=== PATIENT | female | born 1935 | race Caucasian/White ===

== ENCOUNTER 2024-04-13 10:43 | Observation (INO) ==
[2024-04-13 11:50] LABS: BASOPHILS # (AUTO) 0.1 10^3/uL (0.0-0.1); BASOPHILS % (AUTO) 1.1 %; EOSINOPHILS # (AUTO) 0.1 10^3/uL (0.0-0.7); EOSINOPHILS % (AUTO) 2.1 %; HCT - HEMATOCRIT 28.5 % (37.0-47.0); LYMPHOCYTES # (AUTO) 1.1 10^3/uL (1.5-3.5); LYMPHOCYTES % (AUTO) 24.2 %; MEAN CORPUSCULAR HEMOGLOBIN 23.5 pg (27.0-31.0); MEAN CORPUSCULAR HGB CONC 28.1 g/dL (32.0-36.0); MEAN CORPUSCULAR VOLUME 83.8 fL (81.0-99.0); MEAN PLATELET VOLUME 9.8 fL (7.9-10.8); MONOCYTES # (AUTO) 0.5 10^3/uL (0.0-1.0); MONOCYTES % (AUTO) 10.6 %; NEUTROPHILS # (AUTO) 2.9 10^3/uL (1.5-6.6); NEUTROPHILS % (AUTO) 61.8 %; PLT - PLATELET COUNT 388 10^3/uL (130-450); RED CELL DISTRIBUTION WIDTH 22.2 % (12.0-15.0); WHITE BLOOD COUNT 4.7 x10^3/uL (4.8-10.8)
[2024-04-13 11:54] LABS: ALBUMIN 3.5 g/dL (3.2-5.5); ALBUMIN/GLOBULIN RATIO 1.5 (1.0-2.2); BILIRUBIN,TOTAL 0.8 mg/dL (0.2-1.0); CALCIUM 8.6 mg/dL (8.5-10.3); CREATININE 0.7 mg/dL (0.6-1.3); POTASSIUM 3.2 mmol/L (3.5-4.5); TOTAL PROTEIN 5.8 g/dL (6.4-8.9)
[2024-04-13 11:55] LABS: RBC MORPHOLOGY (MULTIPLE) 4+ ANISOCYTOSIS (NORMAL); SLIDE REVIEW? Indicated
[2024-04-13 11:59] LABS: INR 4.4 (0.8-1.2); PT - PROTHROMBIN TIME 43.9 secs (9.9-12.6)
[2024-04-13] MEDS: POTASSIUM CHLOR 10 MEQ/100 ML 10 MEQ/100 ML BAG IV STA (13:10)
--- NOTE | 2024-04-13 15:15 | ED Physician Documentation ---
History of Present Illness Stated complaint Stated Complaint: GIB Chief complaint Chief Complaint: Abd Pain History obtained from History obtained from: Patient History of Present Illness Timing: Prior to arrival Additonal information Additional information: Patient is an 88-year-old female presenting to the emergency department with 2 episodes of bright red blood in her stool. Patient has past medical history of atrial fibrillation she is on warfarin and metoprolol for this. Last dose was yesterday afternoon. She denies any dizziness lightheadedness shortness of breath with her symptoms. She notes some mild lower abdominal cramping but states this resolved after she had a bowel movement and had bright red blood in her stool. She denies any hematemesis. She had similar episode of this back in December and was admitted for it but had no colonoscopy as she declined at that time. Patient also has chronic right breast wound. She notes she has been seen for wound care for it but knows it is a form of breast cancer and has declined any further workup on this. Meds/Allgy Home Medications Ambulatory Orders Medication Instructions Recorded Confirmed acetaminophen 325 mg capsule 325 mg PO Q4H PRN fever or pain 04/13/24 04/13/24 ferrous sulfate 325 mg (65 mg 325 mg PO DAILY 04/13/24 04/13/24 iron) tablet (Feosol) metoprolol succinate 50 mg 50 mg PO DAILY 04/13/24 04/13/24 tablet,extended release 24 hr omeprazole 20 mg capsule,delayed 20 mg PO DAILY 04/13/24 04/13/24 release warfarin 2 mg tablet (Jantoven) 2 mg PO DAILY 04/13/24 04/13/24 Allergies Allergies Allergy/AdvReac Type Severity Reaction Status Date / Time Penicillins Allergy Intermediate Hallucinati Verified 04/13/24 11:04 ons codeine Allergy Mild Unknown Verified 04/13/24 11:04 [facility] Medical History Medical History (Updated 04/13/24 @ 15:29 by Fátima Car MD) Iron deficiency anemia with TIA received 2 units for hgb 6.1. does not wish to pursue work up Chronic atrial fibrillation Hyperlipidemia Hypertension History of stroke but had TIA ss 01/22-01/23 w admit to [facility] CAD (coronary artery disease) s/p cabg 2008, and AVR w bioprosthetic valve Mass of breast thickened, hard skin right breast, refuses tx Social History Social History (Updated 04/13/24 @ 11:03 by Evelyne Gibson RN) Smoking Status: Never smoker Living arrangement: At home Living Condition: With family Relationship: Physical Activity: Walking Do you feel safe in your home environment?: Yes Suffered physical, verbal, emotional, or financial abuse?: No History of Abuse: No ETOH Use: None POLST Patient has POLST: Yes Exam Constitutional normal general appearance HENMT normocephalic Eyes PERRL and EOMs intact bilaterally Neck/C-Spine visual inspection normal, trachea midline and cervical spine nontender Lymph no lymphadenopathy noted Chest inspection of chest normal Respiratory breath sounds equal bilaterally, normal respiratory effort and clear to auscultation bilaterally Cardiovascular normal heart rate noted, regular rhythm noted, no gallop and no rub Gastrointestinal abdomen normal to inspection Abdomen is soft with throughout tenderness on palpation no rebound or guarding. Active bowel sounds on auscultation. No palpable or pulsatile masses Genitourinary no CVA tenderness exam shows bright red blood, no signs of internal or external palpable hemorrhoids Results Vitals Vitals: Vital Signs - 24 hr 04/13/24 10:56 04/13/24 13:03 04/13/24 15:00 Temperature 36.1 C L Pulse Rate 77 93 H 87 Respiratory Rate 16 22 18 Blood Pressure 192/91 H 187/96 H 187/96 H O2 Saturation 99 97 98 O2 Source Room air Room air Room air Pain Intensity 5 0 2 Oxygen O2 Source Room air Labs Labs: Microbiology 04/13/24 11:34 Occult Blood - Final Stool Laboratory Tests 04/13/24 04/13/24 04/13/24 11:10 11:27 12:52 WBC 4.7 L RBC 3.40 L Hgb 8.0 L Hct 28.5 L MCV 83.8 MCH 23.5 L MCHC 28.1 L RDW 22.2 H Plt Count 388 MPV 9.8 Neut # (Auto) 2.9 Lymph # (Auto) 1.1 L [place] # (Auto) 0.5 Eos # (Auto) 0.1 Baso # (Auto) 0.1 Absolute Nucleated RBC 0.00 Nucleated RBC % 0.0 Manual Slide Review Indicated RBC Morph Micro Appear 4+ ANISOCYTOSIS PT 43.9 H INR 4.4 H Sodium 139 Potassium 3.2 L Chloride 106 Carbon Dioxide 26 Anion Gap 7.0 BUN 12 Creatinine 0.7 Estimated GFR (MDRD) 79 L Glucose 113 H Calcium 8.6 Total Bilirubin 0.8 AST 13 ALT 6 L Alkaline Phosphatase 68 Total Protein 5.8 L Albumin 3.5 Globulin 2.3 Albumin/Globulin Ratio 1.5 Lipase 16 Blood Type A POSITIVE Blood Type Recheck A POSITIVE Antibody Screen NEGATIVE PD Medical Decision Making ED course Complexity details: reviewed old records ED course: Patient is a 82-year-old female brought in by granddaughter for 2 episodes of bright red blood in her stool. Similar episode occurred back in December where she was seen at [facility] but no colonoscopy was performed as she declined at that time. Patient continues to report Blood in her stool but denies any associated symptoms including shortness of breath dizziness li ghtheadedness. Vitals on arrival are stable patient is normotensive slightly tachycardic but EKG obtained here shows persistent atrial fibrillation with occasional PVCs. Patient is normotensive on arrival. Rectal exam does show bright red blood with positive guaiac test. CBC shows anemic to 8.0 unsure of patient's baseline as her labs have never been performed here. No previous records outpatient. Her INR is 4.4. Her last dose of warfarin was yesterday. Patient has been having trouble controlling her INR levels. Discussed with On-call surgeon Dr. Chew who reviewed case and recommends patient be admitted to hospitalist but will see patient in patient. Discussed case with hospitalist Dr. Shine who will admit patient to observation status and is agreeable with this plan. Discharge Plan Discharge Patient Disposition: ED Place in Observation Condition: Stable Clinical Impression: Acute GI bleeding, Anemia Prescriptions: No Action ferrous sulfate [Feosol] 325 mg (65 mg iron) tablet 325 mg PO DAILY metoprolol succinate 50 mg tablet extended release 24 hr 50 mg PO DAILY warfarin [Jantoven] 2 mg tablet 2 mg PO DAILY omeprazole 20 mg capsule,delayed release(DR/EC) 20 mg PO DAILY acetaminophen 325 mg capsule 325 mg PO Q4H PRN (Reason: fever or pain) Print Language: Algerian Stand Alone Forms: PCP List
[2024-04-13] MEDS: PHYTONADIONE 10 MG/ML AMP PO ONE (15:52)
[2024-04-13] MEDS: CHERRY SYRUP 10 ML UDC PO ONE ×2 (15:52→16:33)
[2024-04-13 16:07] LABS: HCT - HEMATOCRIT 29.3 % (37.0-47.0); HGB - HEMOGLOBIN 8.2 g/dL (12.0-16.0); MEAN CORPUSCULAR HEMOGLOBIN 23.6 pg (27.0-31.0); MEAN CORPUSCULAR VOLUME 84.2 fL (81.0-99.0); MEAN PLATELET VOLUME 9.8 fL (7.9-10.8); RED BLOOD COUNT 3.48 10^6/uL (4.20-5.40); RED CELL DISTRIBUTION WIDTH 21.9 % (12.0-15.0); WHITE BLOOD COUNT 4.9 x10^3/uL (4.8-10.8)
[2024-04-13] MEDS ORDERED: oxyCODONE 5 MG TABLET PO PRN (16:18)
[2024-04-13] MEDS ORDERED: ONDANSETRON ODT 4 MG TABLET TL PRN (16:18)
[2024-04-13] MEDS ORDERED: PHYTONADIONE 10 MG/ML AMP PO ONE (16:18)
[2024-04-13] MEDS ORDERED: SODIUM CHLORIDE FLUSH 0.9% 10 ML SYRINGE IVP PRN (16:18)
[2024-04-13] MEDS ORDERED: ONDANSETRON 4 MG/2 ML VIAL IVP PRN (16:18)
[2024-04-13] MEDS: SODIUM CHLORIDE FLUSH 0.9% 10 ML SYRINGE IVP SCH (18:15)
--- NOTE | 2024-04-13 18:17 | HISTORY & PHYSICAL EXAMINATION ---
Chief Complaint <Jordan Denis - Last Filed: 04/13/24 18:38> Chief Complaint Chief Complaint: Bright red blood in stool History of Present Illness <Jordan Denis - Last Filed: 04/13/24 18:38> Admitted From Admitted From:: ER History Obtained From Records Reviewed: Expanse History obtained from: Expanse/Patient Exam Limitations: none History of Present Illness HPI Comment/Other: Patient is an 88 year old female being admitted from the ER for anemia and acute GI bleeding. Patient states she has chronic anemia and required a blood transfusion of 2 units packed red blood cells back in December. She also describes what sounds like intermittent episodes of melena seen in her stool. She is currently complaining of painless bright red blood in her stool which she first noticed yesterday. Despite the acknowledged possible melena, patient states she has never experienced bright red blood in stool before. With yesterday's episode, she described a sensation that felt like her rectum was plugged and also mentioned a tearing type sensation with a minor stinging discomfort. She denied any significant pain with the episode. The blood was described as mixed with the stool. Bright red blood was also seen on the toilet paper. She does note experiencing intermittent diarrhea and constipation. She denies coughing or vomiting any bright blood or coffee ground emesis. She states she has hx of GERD that is medically managed. She denies any acute changes in bowel habits, consistency, or frequency. She denies any abdominal pain, or distention. She mentions poor appetite and minor weight loss, but granddaughter has been helping ensure adequate nutrition. No obvious significant weight changes noticed. Denies any relevant GI history such as IBD or IBS. She does mention a family history of diverticulosis but is unsure if she has this herself. Patient also has a history of breast cancer and presents with an open wound on her right breast. Patient has been living with this for 12 years and has denied any treatment. Wound has remained isolated to her breast, requiring frequent dressing changes. Patient describes it as leaking an "[place] green" color and only complains of pain and discomfort when changing the dressing. This wound is also being considered as a possible cause for patient's anemia. Meds/Allgy <Jordan Denis - Last Filed: 04/13/24 18:38> Home Medications Ambulatory Orders Medication Instructions Recorded Confirmed acetaminophen 325 mg capsule 325 mg PO Q4H PRN fever or pain 04/13/24 04/13/24 ferrous sulfate 325 mg (65 mg 325 mg PO DAILY 04/13/24 04/13/24 iron) tablet (Feosol) metoprolol succinate 50 mg 50 mg PO DAILY 04/13/24 04/13/24 tablet,extended release 24 hr omeprazole 20 mg capsule,delayed 20 mg PO DAILY 04/13/24 04/13/24 release warfarin 2 mg tablet (Jantoven) 2 mg PO DAILY 04/13/24 04/13/24 Allergies Allergies Allergy/AdvReac Type Severity Reaction Status Date / Time Penicillins Allergy Intermediate Hallucinati Verified 04/13/24 11:04 ons codeine Allergy Mild Unknown Verified 04/13/24 11:04 [facility] <Jordan Denis - Last Filed: 04/13/24 18:38> Medical History Medical History History of fracture Iron deficiency anemia with TIA received 2 units for hgb 6.1. does not wish to pursue work up Chronic atrial fibrillation Hyperlipidemia Hypertension History of stroke had TIA ss 01/22-01/23 w admit to [facility]. 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, deep brain lacunar infarcs L>R, angio w dense sclerosis but no obstruction CAD (coronary artery disease) s/p cabg 2008, and AVR w bioprosthetic valve Mass of breast thickened, hard skin right breast, refuses tx Family History Family History (Updated 04/13/24 @ 18:25 by Fátima Car MD) Mother Diverticulosis CAD (coronary artery disease) CVA (cerebral vascular accident) Congestive heart failure Father CAD (coronary artery disease) Congestive heart failure Son Well adult exam Daughter Well adult exam Social History Social History (Updated 04/13/24 @ 16:34 by Jordan Denis) Smoking Status: Former smoker If you are a former smoker, when did you quit? (Date/Year): 1989 Number of Years Smoked: 20 How many cigarettes a day do you smoke? (20 cigarettes=1 Pk): 20 Living arrangement: At home Living Condition: With family Support Person: Yes Relationship: Living Situation Details: Lives with grandchild and grandchild's partner. Physical Activity: Walking Level: Independent Do you feel safe in your home environment?: Yes Suffered physical, verbal, emotional, or financial abuse?: No History of Abuse: No ETOH Use: None ETOH Use Details: States she used to drink wine, no current use. Substance Use: denies use POLST Patient has POLST: Yes <Fátima Car MD - Last Filed: 04/13/24 18:38> POLST POLST Status: DNR Review of Systems <Jordan Vogel - Last Filed: 04/13/24 18:38> Status of ROS: 10 or more systems reviewed and unremarkable except as noted in history and below Constitutional Reports: Weight loss; Denies: Fatigue, Fever, Chills, Diaphoresis, Night sweats, Changes in appetite or eating habits, Poor appetite, Weight gain or Change in sleep pattern Eyes Denies: Pain, Irritation, Change in vision, Light sensitivity or Eye discomfort Ears, nose, mouth, and throat Reports: Difficulty swallowing (Mentioned some difficulty swallowing liquids, no issues with food.); Denies: Ear pain, Change in hearing, Swelling of lips/tongue, Mouth lesions or Neck pain Cardiovascular Reports: Irregular heart rate; Denies: chest pain, palpitations, edema, swelling of feet/ankles, Syncope, lightheadedness or shortness of breath with exertion Respiratory Reports: Cough (Chronic cough.); Denies: Shortness of breath, Sputum production, Wheezing, Apnea or Stridor Gastrointestinal Reports: Nausea (chronic nausea), Poor appetite, Heartburn, Diarrhea, Constipation, Difficulty swallowing (Mentioned some difficulty swallowing liquids, no issues with food.), Feeling full early, Rectal bleeding and Blood in stool; Denies: Abdominal pain, Abdominal distention, [place] blood emesis, Coffee grounds in vomit, Bloating or Change in bowel habits Genitourinary Denies: Painful urination, Urinary frequency or Urinary urgency Musculoskeletal Denies: Back pain, Neck pain, Extremity pain or Extremity swelling Integumentary/Breast Reports: Skin tenderness, Sores, Non-healing lesion, Breast mass (Part of history, not being treated.) and Breast skin changes; Denies: Rash, Itching or Dryness Neurological Denies: Headache, General weakness, Focal weakness, Weakness in extremities or Numbness in extremities Endocrine Denies: Excessive urination, Excessive thirst or Fatigue Hematologic/Lymphatic Reports: Anemia Allergic/Immunologic Denies: Wheezing <Jordan Hem - Last Filed: 04/13/24 18:38> Prior Level of Functionality: Current condtions have no impact on prior level of function. <Fátima Car MD - Last Filed: 04/13/24 18:38> Prior Level of Functionality: by herself during the day and able to do cold food and at night granddaughter cooks hot meal she eats. needs help in shower bc of breast mass pain. rarely walker. doesn't drive. . Exam <Jordan Denis - Last Filed: 04/13/24 18:38> Exam Patient is alert and oriented, pleasant to talk to, in no apparent distress. She is compliant and able to answer all questions as necessary. Constitutional normal general appearance, no apparent distress, average body habitus, no limitations and alert HENMT normocephalic, external ears normal, external nose normal and oropharynx normal Eyes PERRL, EOMs intact bilaterally and conjunctivae normal Neck/C-Spine visual inspection normal, trachea midline and cervical full ROM noted Respiratory breath sounds equal bilaterally, normal respiratory effort, clear to auscultation bilaterally, no wheezes, no rales and no retractions Cardiovascular heart rate abnormal, rhythm abnormal, no gallop, no rub, no murmur and no JVD Gastrointestinal abdomen normal to inspection, abdomen soft to palpation, nontender to palpation, nondistended, normoactive bowel sounds, no masses, no pulsatile mass, no ascites and rectal exam abnormal (hemorrhoids) Back/Pelvis spine normal to inspection, thoracic spine ROM normal and lumbar spine ROM normal Extremities normal to inspection, normal to palpation, no tenderness and full ROM Neurology marine painter II-XII intact, no movement abnormality noted, no focal motor deficit noted, no sensory deficits noted, speech normal and coordination normal Psychiatry mental status grossly normal, oriented x3, thought process normal, cooperative, affect normal, psychomotor activity normal and memory normal Skin skin color normal, no rash and no lesions <Fátima Car MD - Last Filed: 04/13/24 18:38> Constitutional frail, 5'2", 58.7 kg (129 lbs). She was 144 lbs at cardiology office in the spring. Chest right breast with foul smelling discharge, loss of skin, erosions, oozing, green reina tis 2 hand widths large. no surround cellulitis. Conclusion/Plan <Jordan Denis - Last Filed: 04/13/24 18:38> Problem List (1) Acute GI bleeding: Plan: Rectal exam was performed and discovered patient had external hemorrhoids that appear inflamed and recently aggrivated which is likely the source of rectal bleeding. Will continue to monitor to ensure there is no recurrent issues. Patient was advised to try being more gentle with wiping to avoid further aggrivation. (2) Anemia: Plan: Patient is currently on warfarin for afib/stoke/cardiac history. Warfarin is being held and patient was administered PO vit K. Will continue to monitor INR and anemia and treat if necessary pending serial labs. Possible sources of anemia include recent hemorrhoid bleeding, breast cancer wound, or other anemia of chronic disease. Blood transfusion will be considered as necessary based upon patient's history of previous transfusion. 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 It has been ongoing for 12 years and currently presents as a leaking wound covering most of the breast. It is bandaged and difficult to remove, causing discomfort, so no immediate need to evaluate. Tomorrow, the bandage will be carefully removed and assessed. Patient is adamant about no surgical treatment, so a better wound care plan will be discussed with possible referral to the crime data specialist. Qualifiers: Breast location: unspecified site of breast Estrogen receptor status: u nspecified Laterality: right Patient sex: female Qualified Code(s): C50.911 - Malignant neoplasm of unspecified site of right female breast (4) Advanced care planning/counseling discussion: Plan: Based upon patient's history and request for no treatment, there was confusion about her being in the ER. We had a conversation with the patient to better determine her treatment goals in order to most appropriately plan and manage her care. She is adamant about no surgical procedures, only requesting minimally invasive procedures/therapy and comfort measures. She expressed emotion and hesitancy for receiving treatment due to feeling like a burden on her family who takes care of her. We, and her family member, reassured her that she is not a burden, that we will honor her wishes for treatment, and she appeared receptive and comforted by the discussion. Lab Results 04/13/24 16:03 04/13/24 11:27 <Fátima Car MD - Last Filed: 04/13/24 18:38> Problem List (1) Acute GI bleeding: Plan: Rectal exam was performed and discovered patient had external hemorrhoids that appear inflamed and recently aggravated which is likely the source of rectal bleeding. Will continue to monitor to ensure there is no recurrent issues. Patient was advised to try being more gentle with wiping to avoid further aggrivation. We discussed a bidet for home use. Plan: Observation status serial hemograms PPI orally (2) Anemia: Plan: iron deficiency. That is most likely due to lack of nutrition due to lack of appetite, loss of blood thru wound, and may or may not from GI losses as she describes boughts of diarrhea w melena that comes and goes for 2 years now. Patient is currently on warfarin for afib/stoke/cardiac history. Warfarin is being held and patient was administered PO vit K. Will continue to monitor INR and anemia and treat if necessary pending serial labs. Possible sources of anemia include recent hemorrhoid bleeding, breast cancer wound, or other anemia of chronic disease. Blood transfusion will be considered as necessary based upon patient's history of previous transfusion. 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 It has been ongoing for 12 years and currently presents as a leaking wound covering most of the breast. It is bandaged and difficult to remove, causing discomfort, so no immediate need to evaluate. Tomorrow, the bandage will be carefully removed and assessed. Patient is adamant about no surgical treatment, so a better wound care plan will be discussed with possible referral to the crime data specialist. Navid is asking for help and would like to be instructed on how to change bandages. She is also wondering if home health wound could help. As recently as December, Ms Lin had not wanted HH but is now wanting to see if it could change how much her breast hurts I will also ask for outpatient Palliative care eval. (4) Advanced care planning/counseling discussion: Plan: Based upon patient's history and request for no treatment, there was confusion about her being in the ER. We had a conversation with the patient to better determine her treatment goals in order to most appropriately plan and manage her care. She is adamant about no surgical procedures, only requesting minimally invasive procedures/therapy and comfort measures. She expressed emotion and hesitancy for receiving treatment due to feeling like a burden on her family who takes care of her. We, and her family member, reassured her that she is not a burden, that we will honor her wishes for treatment, and she appeared receptive and comforted by the discussion. she is a Do Not Resuscitate. Core Measures <Fátima L MD Josep - Last Filed: 04/13/24 18:38> Anticipated LOS I expect patient to be DC'd or transferred within 96 hours.: Yes DVT/VTE - Prophylaxis VTE/DVT Prophylaxis med ordered at admit?: Yes
[2024-04-13 21:39] LABS: BILIRUBIN,URINE NEGATIVE (NEGATIVE); CLARITY,URINE HAZY (CLEAR); GLUCOSE, URINE (UA) NEGATIVE (NEGATIVE); KETONES,URINE (UA) 15 mg/dL (NEGATIVE); LEUKOCYTE ESTERASE, URINE SMALL (NEGATIVE); NITRITE,URINE NEGATIVE (NEGATIVE); OCCULT BLOOD,URINE NEGATIVE (NEGATIVE); PH,URINE 7.5 PH (5.0-7.5); PROTEIN,URINE NEGATIVE (NEGATIVE); UROBILINOGEN,URINE 0.2 (NORMAL) E.U./dL (NORMAL)
[2024-04-13 21:49] LABS: BACTERIA,URINE Moderate /HPF (None Seen); MUCUS,URINE Few Strands; RBC,URINE 0-5 /HPF (0-5); SQUAMOUS EPITHELIAL CELL,UR MOD Squamous (<= Few)
[2024-04-13 23:43] LABS: HCT - HEMATOCRIT 26.9 % (37.0-47.0); HGB - HEMOGLOBIN 7.5 g/dL (12.0-16.0); MEAN CORPUSCULAR HEMOGLOBIN 23.1 pg (27.0-31.0); MEAN CORPUSCULAR HGB CONC 27.9 g/dL (32.0-36.0); MEAN CORPUSCULAR VOLUME 82.8 fL (81.0-99.0); MEAN PLATELET VOLUME 8.8 fL (7.9-10.8); RED BLOOD COUNT 3.25 10^6/uL (4.20-5.40); RED CELL DISTRIBUTION WIDTH 21.8 % (12.0-15.0); WHITE BLOOD COUNT 4.5 x10^3/uL (4.8-10.8)
[2024-04-14 05:57] LABS: BASOPHILS # (AUTO) 0.1 10^3/uL (0.0-0.1); BASOPHILS % (AUTO) 1.1 %; EOSINOPHILS # (AUTO) 0.2 10^3/uL (0.0-0.7); EOSINOPHILS % (AUTO) 4.8 %; HCT - HEMATOCRIT 25.9 % (37.0-47.0); HGB - HEMOGLOBIN 7.5 g/dL (12.0-16.0); LYMPHOCYTES # (AUTO) 1.4 10^3/uL (1.5-3.5); LYMPHOCYTES % (AUTO) 29.5 %; MEAN CORPUSCULAR HEMOGLOBIN 24.3 pg (27.0-31.0); MEAN CORPUSCULAR VOLUME 83.8 fL (81.0-99.0); MEAN PLATELET VOLUME 9.7 fL (7.9-10.8); MONOCYTES # (AUTO) 0.6 10^3/uL (0.0-1.0); MONOCYTES % (AUTO) 12.7 %; NEUTROPHILS # (AUTO) 2.4 10^3/uL (1.5-6.6); NEUTROPHILS % (AUTO) 51.9 %; PLT - PLATELET COUNT 319 10^3/uL (130-450); RED BLOOD COUNT 3.09 10^6/uL (4.20-5.40); RED CELL DISTRIBUTION WIDTH 21.8 % (12.0-15.0); WHITE BLOOD COUNT 4.6 x10^3/uL (4.8-10.8)
[2024-04-14 06:05] LABS: SLIDE REVIEW? Indicated
[2024-04-14 06:09] LABS: INR 1.5 (0.8-1.2); PT - PROTHROMBIN TIME 16.2 secs (9.9-12.6)
[2024-04-14 06:14] LABS: CALCIUM 8.3 mg/dL (8.5-10.3); CREATININE 0.6 mg/dL (0.6-1.3); POTASSIUM 2.9 mmol/L (3.5-4.5)
[2024-04-14 06:36] LABS: PLATELET MORPHOLOGY NORMAL APPEARANCE (NORMAL)
[2024-04-14 06:37] LABS: PLATELET ESTIMATE, MANUAL NORMAL (130-450,000) (NORMAL); WBC MORPHOLOGY (MULTIPLE) NORMAL APPEARANCE (NORMAL)
[2024-04-14] MEDS: FERROUS SULFATE 325 MG TABLET PO SCH (08:23)
[2024-04-14] MEDS: POTASSIUM CHLORIDE 20 MEQ TABLET PO SCH (08:23)
[2024-04-14] MEDS: METOPROLOL SUCCINATE 50 MG TABLET PO SCH (08:23)
--- NOTE | 2024-04-14 09:19 | PROVIDER PROGRESS NOTE ---
Documented by User: Jordan Denis 04/14/24 16:31 Subjective Prog Note Date Prog Note Date: 04/14/24 Prog Note Time: 09:00 Subjective Pt reports feeling: Improved Subjective: Upon entering room, patient appears happy, upbeat, and overall very pleasant. She will be receiving 1 unit of blood due to low HGB, but is otherwise denying any acute complaints to include abnormal weakness, chest pain, shortness of breath, other pain, nausea, or vomiting. We discussed her care plan to include after discharge which she seemed excited about, particularly regarding assistance with her wound care and showing which will include a home health nurse. Current Medications Current Medications Current Medications: Current Medications Generic Name Dose Route Start Last Admin Trade Name Freq PRN Reason Stop Dose Admin Acetaminophen 325 mg 04/13/24 16:18 Acetaminophen 325 Mg Tablet PO Q4H PRN fever or pain Ferrous Sulfate 325 mg 04/14/24 09:00 04/14/24 08:23 Ferrous Sulfate 325 Mg Tablet PO 325 mg DAILY VIRY Administration Metoprolol Succinate 50 mg 04/14/24 09:00 04/14/24 08:23 Metoprolol Succinate 50 Mg Tablet PO 50 mg DAILY VIRY Administration Ondansetron HCl 4 mg 04/13/24 16:18 Ondansetron Odt 4 Mg Tablet TL Q6HR PRN Nausea / Vomiting Ondansetron HCl 4 mg 04/13/24 16:18 Ondansetron 4 Mg/2 Ml Vial IVP Q6HR PRN Nausea / Vomiting Oxycodone HCl 5 mg 04/13/24 16:18 Oxycodone 5 Mg Tablet PO Q4HR PRN Pain 5 to 7 Potassium Chloride 40 meq 04/14/24 08:00 04/14/24 08:23 Potassium Chloride 20 Meq Tablet PO 40 meq TID VIRY Administration Sodium Chloride 10 ml 04/13/24 16:18 Sodium Chloride Flush 0.9% 10 Ml Syringe IVP PRN PRN NEEDED PER PROVIDER ORDERS Sodium Chloride 10 ml 04/13/24 17:00 04/14/24 08:23 Sodium Chloride Flush 0.9% 10 Ml Syringe IVP 10 ml 0100,0900,1700 VIRY Administration Objective Vital Signs/Intake & Output Reviewed Vital Signs: Yes Vital Signs: Vital Signs x48h Temp Pulse Resp BP Pulse Ox O2 Flow Rate 04/14/24 08:18 36.5 C 95 H 20 152/76 H 96 04/14/24 05:02 36.4 C L 97 H 20 148/76 H 96 Intake & Output: Intake & Output 04/12/24 04/13/24 04/14/24 04/15/24 05:59 05:59 05:59 05:59 Intake Total 680 / 680 50 / 50 Output Total 500 / 500 Balance 180 / 180 50 / 50 Weight (kg) 59.5 kg Objective General Appearance: positive No acute distress and Alert Eyes Bilateral: positive Normal inspection and PERRL ENT: positive No signs of dehydration Neck: positive Nml inspection, No JVD and Trachea midline Respiratory: positive No respiratory distress and Breath sounds nml; negative Wheezes, Rales or Rhonchi Cardiovascular: positive No murmur, No gallop and Irregularly irregular; negative Regular rate & rhythm Abdomen: positive Non-tender, No organomegaly, Nml bowel sounds and No distention; negative Tenderness or Guarding Back: positive Nml inspection Skin: positive Color nml and Warm Extremities: positive Non-tender, Full ROM and No pedal edema Neurologic/Psychiatric: positive Oriented x3, CN's nml (2-12), Motor nml and Sensation nml Lab Results 04/14/24 05:11 04/14/24 05:11 Other Labs: Lab Results x24hrs 04/14/24 04/14/24 04/14/24 Range/Units 05:11 05:11 05:11 WBC (4.8-10.8) x10^3/uL RBC (4.20-5.40) 10^6/uL Hgb (12.0-16.0) g/dL Hct (37.0-47.0) % MCV (81.0-99.0) fL MCH (27.0-31.0) pg MCHC (32.0-36.0) g/dL RDW (12.0-15.0) % Plt Count (130-450) 10^3/uL MPV (7.9-10.8) fL Neut # (Auto) (1.5-6.6) 10^3/uL Lymph # (Auto) (1.5-3.5) 10^3/uL [place] # (Auto) (0.0-1.0) 10^3/uL Eos # (Auto) (0.0-0.7) 10^3/uL Baso # (Auto) (0.0-0.1) 10^3/uL Absolute Nucleated RBC x10^3/uL Nucleated RBC % /100WBC Manual Slide Review WBC Morphology (NORMAL) Platelet Estimate (NORMAL) Platelet Morphology (NORMAL) RBC Morph Micro Appear 1+ HYPOCHROMASIA 2+ ANISOCYTOSIS 1+ SCHISTOCYTES (NORMAL) PT 16.2 H (9.9-12.6) secs INR 1.5 H (0.8-1.2) Sodium 141 (135-145) mmol/L Potassium 2.9 L (3.5-4.5) mmol/L Chloride 108 (101-111) mmol/L Carbon Dioxide 26 (21-32) mmol/L Anion Gap 7.0 (6-13) BUN 13 (6-20) mg/dL Creatinine 0.6 (0.6-1.3) mg/dL Estimated GFR (MDRD) 95 (>89) Glucose 136 H (74-104) mg/dL Calcium 8.3 L (8.5-10.3) mg/dL Total Bilirubin (0.2-1.0) mg/dL AST (10-42) IU/L ALT (10-60) IU/L Alkaline Phosphatase (42-121) IU/L Total Protein (6.4-8.9) g/dL Albumin (3.2-5.5) g/dL Globulin (2.1-4.2) g/dL Albumin/Globulin Ratio (1.0-2.2) Lipase (11-82) U/L Urine Color Urine Clarity Urine pH Ur Specific [place] Urine Protein Urine Glucose (UA) Urine Ketones Urine Occult Blood Urine Nitrite Urine Bilirubin Urine Urobilinogen Ur Leukocyte Esterase Urine RBC (0-5) /HPF Urine WBC (0-5) /HPF Ur Squamous Epith Cells (<= Few) Urine Bacteria (None Seen) /HPF Urine Mucus Ur Microscopic Review Urine Culture Comments Blood Type Blood Type Recheck Antibody Screen Crossmatch IS Only 04/14/24 04/13/24 04/13/24 Range/Units 05:11 23:38 21:20 WBC 4.6 L 4.5 L (4.8-10.8) x10^3/uL RBC 3.09 L 3.25 L (4.20-5.40) 10^6/uL Hgb 7.5 L 7.5 L (12.0-16.0) g/dL Hct 25.9 L 26.9 L (37.0-47.0) % MCV 83.8 82.8 (81.0-99.0) fL MCH 24.3 L 23.1 L (27.0-31.0) pg MCHC 29.0 L 27.9 L (32.0-36.0) g/dL RDW 21.8 H 21.8 H (12.0-15.0) % Plt Count 319 311 (130-450) 10^3/uL MPV 9.7 8.8 (7.9-10.8) fL Neut # (Auto) 2.4 (1.5-6.6) 10^3/uL Lymph # (Auto) 1.4 L (1.5-3.5) 10^3/uL [place] # (Auto) 0.6 (0.0-1.0) 10^3/uL Eos # (Auto) 0.2 (0.0-0.7) 10^3/uL Baso # (Auto) 0.1 (0.0-0.1) 10^3/uL Absolute Nucleated RBC 0.00 x10^3/uL Nucleated RBC % 0.0 /100WBC Manual Slide Review Indicated WBC Morphology NORMAL APPEARANCE (NORMAL) Platelet Estimate NORMAL (130-450,000) (NORMAL) Platelet Morphology NORMAL APPEARANCE (NORMAL) RBC Morph Micro Appear 2+ OVALOCYTES (NORMAL) PT (9.9-12.6) secs INR (0.8-1.2) Sodium (135-145) mmol/L Potassium (3.5-4.5) mmol/L Chloride (101-111) mmol/L Carbon Dioxide (21-32) mmol/L Anion Gap (6-13) BUN (6-20) mg/dL Creatinine (0.6-1.3) mg/dL Estimated GFR (MDRD) (>89) Glucose (74-104) mg/dL Calcium (8.5-10.3) mg/dL Total Bilirubin (0.2-1.0) mg/dL AST (10-42) IU/L ALT (10-60) IU/L Alkaline Phosphatase (42-121) IU/L Total Protein (6.4-8.9) g/dL Albumin (3.2-5.5) g/dL Globulin (2.1-4.2) g/dL Albumin/Globulin Ratio (1.0-2.2) Lipase (11-82) U/L Urine Color YELLOW Urine Clarity HAZY Urine pH 7.5 Ur Specific [place] 1.020 Urine Protein NEGATIVE Urine Glucose (UA) NEGATIVE Urine Ketones 15 H Urine Occult Blood NEGATIVE Urine Nitrite NEGATIVE Urine Bilirubin NEGATIVE Urine Urobilinogen 0.2 (NORMAL) Ur Leukocyte Esterase SMALL H Urine RBC 0-5 (0-5) /HPF Urine WBC 4-5 (0-5) /HPF Ur Squamous Epith Cells MOD Squamous H (<= Few) Urine Bacteria Moderate H (None Seen) /HPF Urine Mucus Few Strands Ur Microscopic Review INDICATED Urine Culture Comments NOT INDICATED Blood Type Blood Type Recheck Antibody Screen Crossmatch IS Only 04/13/24 04/13/24 04/13/24 Range/Units 16:03 15:05 12:52 WBC 4.9 (4.8-10.8) x10^3/uL RBC 3.48 L (4.20-5.40) 10^6/uL Hgb 8.2 L (12.0-16.0) g/dL Hct 29.3 L (37.0-47.0) % MCV 84.2 (81.0-99.0) fL MCH 23.6 L (27.0-31.0) pg MCHC 28.0 L (32.0-36.0) g/dL RDW 21.9 H (12.0-15.0) % Plt Count 354 (130-450) 10^3/uL MPV 9.8 (7.9-10.8) fL Neut # (Auto) (1.5-6.6) 10^3/uL Lymph # (Auto) (1.5-3.5) 10^3/uL [place] # (Auto) (0.0-1.0) 10^3/uL Eos # (Auto) (0.0-0.7) 10^3/uL Baso # (Auto) (0.0-0.1) 10^3/uL Absolute Nucleated RBC x10^3/uL Nucleated RBC % /100WBC Manual Slide Review WBC Morphology (NORMAL) Platelet Estimate (NORMAL) Platelet Morphology (NORMAL) RBC Morph Micro Appear (NORMAL) PT (9.9-12.6) secs INR (0.8-1.2) Sodium (135-145) mmol/L Potassium (3.5-4.5) mmol/L Chloride (101-111) mmol/L Carbon Dioxide (21-32) mmol/L Anion Gap (6-13) BUN (6-20) mg/dL Creatinine (0.6-1.3) mg/dL Estimated GFR (MDRD) (>89) Glucose (74-104) mg/dL Calcium (8.5-10.3) mg/dL Total Bilirubin (0.2-1.0) mg/dL AST (10-42) IU/L ALT (10-60) IU/L Alkaline Phosphatase (42-121) IU/L Total Protein (6.4-8.9) g/dL Albumin (3.2-5.5) g/dL Globulin (2.1-4.2) g/dL Albumin/Globulin Ratio (1.0-2.2) Lipase (11-82) U/L Urine Color Cancelled Urine Clarity Cancelled Urine pH Cancelled Ur Specific [place] Cancelled Urine Protein Cancelled Urine Glucose (UA) Cancelled Urine Ketones Cancelled Urine Occult Blood Cancelled Urine Nitrite Cancelled Urine Bilirubin Cancelled Urine Urobilinogen Cancelled Ur Leukocyte Esterase Cancelled Urine RBC (0-5) /HPF Urine WBC (0-5) /HPF Ur Squamous Epith Cells (<= Few) Urine Bacteria (None Seen) /HPF Urine Mucus Ur Microscopic Review Cancelled Urine Culture Comments Cancelled Blood Type A POSITIVE Blood Type Recheck Antibody Screen NEGATIVE Crossmatch IS Only See Detail 04/13/24 04/13/24 Range/Units 11:27 11:10 WBC 4.7 L (4.8-10.8) x10^3/uL RBC 3.40 L (4.20-5.40) 10^6/uL Hgb 8.0 L (12.0-16.0) g/dL Hct 28.5 L (37.0-47.0) % MCV 83.8 (81.0-99.0) fL MCH 23.5 L (27.0-31.0) pg MCHC 28.1 L (32.0-36.0) g/dL RDW 22.2 H (12.0-15.0) % Plt Count 388 (130-450) 10^3/uL MPV 9.8 (7.9-10.8) fL Neut # (Auto) 2.9 (1.5-6.6) 10^3/uL Lymph # (Auto) 1.1 L (1.5-3.5) 10^3/uL [place] # (Auto) 0.5 (0.0-1.0) 10^3/uL Eos # (Auto) 0.1 (0.0-0.7) 10^3/uL Baso # (Auto) 0.1 (0.0-0.1) 10^3/uL Absolute Nucleated RBC 0.00 x10^3/uL Nucleated RBC % 0.0 /100WBC Manual Slide Review Indicated WBC Morphology (NORMAL) Platelet Estimate (NORMAL) Platelet Morphology (NORMAL) RBC Morph Micro Appear 4+ ANISOCYTOSIS (NORMAL) PT 43.9 H (9.9-12.6) secs INR 4.4 H (0.8-1.2) Sodium 139 (135-145) mmol/L Potassium 3.2 L (3.5-4.5) mmol/L Chloride 106 (101-111) mmol/L Carbon Dioxide 26 (21-32) mmol/L Anion Gap 7.0 (6-13) BUN 12 (6-20) mg/dL Creatinine 0.7 (0.6-1.3) mg/dL Estimated GFR (MDRD) 79 L (>89) Glucose 113 H (74-104) mg/dL Calcium 8.6 (8.5-10.3) mg/dL Total Bilirubin 0.8 (0.2-1.0) mg/dL AST 13 (10-42) IU/L ALT 6 L (10-60) IU/L Alkaline Phosphatase 68 (42-121) IU/L Total Protein 5.8 L (6.4-8.9) g/dL Albumin 3.5 (3.2-5.5) g/dL Globulin 2.3 (2.1-4.2) g/dL Albumin/Globulin Ratio 1.5 (1.0-2.2) Lipase 16 (11-82) U/L Urine Color Urine Clarity Urine pH Ur Specific [place] Urine Protein Urine Glucose (UA) Urine Ketones Urine Occult Blood Urine Nitrite Urine Bilirubin Urine Urobilinogen Ur Leukocyte Esterase Urine RBC (0-5) /HPF Urine WBC (0-5) /HPF Ur Squamous Epith Cells (<= Few) Urine Bacteria (None Seen) /HPF Urine Mucus Ur Microscopic Review Urine Culture Comments Blood Type Blood Type Recheck A POSITIVE Antibody Screen Crossmatch IS Only Diagnostic Imaging Diagnostic Imaging Results: positive See rad report Assessment/Plan Problem List (1) Anemia: Impression: Patient will be receiving 1 unit of blood due to slightly lowered HGB. Patient's anemia is chronic and should not require further inpatient treatment, so it is suspected patient will be ready for discharge. We will reevaluate and confirm or adjust discharge plan after infusion if necessary. Qualifiers: Anemia type: unspecified type Qualified Code(s): D64.9 - Anemia, unspecified (2) Breast cancer: Impression: We confirmed patient's reason for not wanting surgery and discussed medication management with Arimidex which she was receptive to and will receive a prescription for. We also discussed wound care methods that are not as uncomfortable as patient's current regimen. She will be receiving a referral for a home care nurse to assist with wound management, dressing changes, and shower. Qualifiers: Breast location: unspecified site of breast Estrogen receptor status: u nspecified Laterality: right Patient sex: female Qualified Code(s): C50.911 - Malignant neoplasm of unspecified site of right female breast (3) Acute GI bleeding: Impression: Acute GI bleed is likely due to recent hemorrhoids which has self resolved. So signs/symptoms that would indicate another acute cause. Will continue to monitor and treat if necessary. (4) Advanced care planning/counseling discussion: Impression: Care plan was discussed with patient and she appears happy and excited about it. We discussed receiving a home care nurse to assist with daily tasks, such as dressing changes on her breast wound and showering. She enjoys feeling like she will be less of a burden on her family members that also assist with her care. Documented by User: Fátima Car MD 04/14/24 16:31 Objective Lab Results 04/14/24 05:11 04/14/24 05:11 Assessment/Plan Problem List (1) Anemia: Qualifiers: Anemia type: unspecified type Qualified Code(s): D64.9 - Anemia, unspecified (2) Breast cancer: Qualifiers: Breast location: unspecified site of breast Estrogen receptor status: u nspecified Laterality: right Patient sex: female Qualified Code(s): C50.911 - Malignant neoplasm of unspecified site of right female breast (3) Acute GI bleeding: (4) Advanced care planning/counseling discussion:
--- NOTE | 2024-04-14 12:21 | PHARMACY PROGRESS NOTE ---
Best Possible Medication History Admit Date and Time: 04/13/24 1524 Home Medications Medication Instructions Recorded Confirmed Type acetaminophen 325 mg capsule 325 mg PO Q4H PRN fever or pain 04/13/24 04/13/24 History ferrous sulfate 325 mg (65 mg 325 mg PO DAILY 04/13/24 04/13/24 History iron) tablet (Feosol) metoprolol succinate 50 mg 50 mg PO DAILY 04/13/24 04/13/24 History tablet,extended release 24 hr omeprazole 20 mg capsule,delayed 20 mg PO DAILY 04/13/24 04/13/24 History release warfarin 2 mg tablet (Jantoven) 2 mg PO DAILY 04/13/24 04/13/24 History Processed by: Pharmacy Medications reviewed in ED?: Yes Medication History completed: Yes Patient Interview: Completed [facility] Statement: Per [employer] records and pt interview via PhT. As the person ultimately responsible for medication therapy, providers are able to order a medication from an existing home medication list in [facility] via the "Reconcile Routine" prior to Confirmation of that medication by software support specialist. Such practice is discouraged except when the physician, in their clinical judgment, deems that a medical need exists for a medication without regard to previous use.
[2024-04-14 12:24] VITALS: O2SAT 98
[2024-04-14] MEDS: ACETAMINOPHEN 325 MG TABLET PO PRN (12:54)
--- NOTE | 2024-04-14 16:29 | Discharge Summary ---
Discharge Summary Admit Date: 04/13/24 Discharge Date: 04/14/24 Discharging Provider: Fátima Car MD Primary Care Provider: Pinky Hale MD Code Status: Do Not Attempt Resuscitation DIAGNOSES Discharge Diagnoses with Status of Each Condition: 1. Bright red blood per rectum 2. Anal skin tags 3. Supratherapeutic INR 4. Chronic atrial fibrillation 5. Chronic protein calorie malnutrition 6. 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 Status post aortic valve replacement 8. iron deficiency anemia requiring 1 unit of PRBC 9. DO NOT RESUSCITATE status HPI History of Present Illness: Patient is an 88 year old female being admitted from the ER for anemia and acute GI bleeding. Patient states she has chronic anemia and required a blood transfusion of 2 units packed red blood cells back in December. She also describes what sounds like intermittent episodes of melena seen in her stool. She is currently complaining of painless bright red blood in her stool which she first noticed yesterday. Despite the acknowledged possible melena, patient states she has never experienced bright red blood in stool before. With yesterday's episode, she described a sensation that felt like her rectum was plugged and also mentioned a tearing type sensation with a minor stinging discomfort. She denied any significant pain with the episode. The blood was described as mixed with the stool. Bright red blood was also seen on the toilet paper. She does note experiencing intermittent diarrhea and constipation. She denies coughing or vomiting any bright blood or coffee ground emesis. She states she has hx of GERD that is medically managed. She denies any acute changes in bowel habits, consistency, or frequency. She denies any abdominal pain, or distention. She mentions poor appetite and minor weight loss, but granddaughter has been helping ensure adequate nutrition. No obvious significant weight changes noticed. Denies any relevant GI history such as IBD or IBS. She does mention a family history of diverticulosis but is unsure if she has this herself. Patient also has a history of breast cancer and presents with an open wound on her right breast. Patient has been living with this for 12 years and has denied any treatment. Wound has remained isolated to her breast, requiring frequent dressing changes. Patient describes it as leaking an "avacado green" color and only complains of pain and discomfort when changing the dressing. This wound is also being considered as a possible cause for patient's anemia CONSULTS | PROCEDURES Consultations: General surgery, Dr. Hannah Ledesma HOSPITAL COURSE Hospital Course: Patient presented as bright red blood per rectum with a supratherapeutic INR. We spent quite a bit of time exploring her goals of care, delineating the for our institution. We were able to look at records from [facility] from her most recent admission. She is still quite clear about her goals of care. She has had a breast mass or changes of the skin of her breast for over 12 years. That has been her main difficulty over the last few months. It is difficult and painful to change the dressing because of the constant oozing and serosanguineous fluid that causes bandage to stick to her chest wall. It is painful when she takes the bandages off. She states that she wants to be DO NOT RESUSCITATE but she still wants treatment. She just does not necessarily want surgical procedures. So she is not interested in a colonoscopy to review the cause of her bright red blood per rectum. She is not interested in a breast biopsy. She is not interested in breast surgery for the breast changes. 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 She is already lost most of her nipple and skin is gone and down to a serosanguineous fascial layer. Fungating mass. No surrounding cellulitis. Chronic anemia. That has been mentioned in the medical record. With this today, we were doing serial hemograms for the "possible GI bleed" and she did drift below 8 g of hemoglobin to 7.5. Because of her age and cardiac status she was a candidate for 1 unit of blood which we transfuse. Nursing did a wonderful job spending time with this woman to get her bath, and getting the dried bandages off her breast. We were able to examine the breast and take pictures. We have put on a Xeroform dressing and on top of that and absorptive dressing. But I am having her follow-up with home health wound care at home. I want the dressing changed 2-3 times a week. I also like a bath aide. Once she is able to have her wound drainage stabilized, she should follow-up with the wound clinic and not be seen by home health anymore. I am also have her seen by palliative care provider written that order. I did speak to her earth [facility] office. She does not need her Coumadin for aortic valve but as needed for her A-fib. The patient states that she is interested in remaining on anticoagulation for prevention of stroke. I thought I was going to start her on Eliquis 2.5 mg a day but Arianna Tubbs is not covered by insurance plan. I ended up putting her on Pradaxa 75 mg a day. I would leave it to her primary care provider but she might be able to get away with Pradaxa 75 mg once a day. As for her bleeding, I did a careful rectal exam. She has cyclical bouts of diarrhea that come and go. She had another recent bout and was having to wipe frequently. What I saw was external rectal skin tags that were irritated and inflamed. The bleeding came from them. There is no internal hemorrhoids. No active external hemorrhoids. Greater than 30 minutes spent coordinating this discharge that was complicated with regards to instructions on new wound cleaning, possible consideration of Arimidex or tamoxifen but I am not giving because it is Paget's, changing her anticoagulation to a new drug and why, putting her in contact with our palliative care department, coordinating care between our wound care and home health department. ALLERGIES Allergies Allergy/AdvReac Type Severity Reaction Status Date / Time Penicillins Allergy Intermediate Hallucinati Verified 04/13/24 11:04 ons codeine Allergy Mild Unknown Verified 04/13/24 11:04 MEDICATIONS Ambulatory Orders Medication Instructions Recorded Confirmed acetaminophen 325 mg capsule 325 mg PO Q4H PRN fever or pain 04/13/24 04/13/24 ferrous sulfate 325 mg (65 mg 325 mg PO DAILY 04/13/24 04/13/24 iron) tablet (Feosol) metoprolol succinate 50 mg 50 mg PO DAILY 04/13/24 04/13/24 tablet,extended release 24 hr omeprazole 20 mg capsule,delayed 20 mg PO DAILY 04/13/24 04/13/24 release dabigatran etexilate 75 mg capsule 75 mg PO BID #60 caps 04/14/24 (Pradaxa) PHYSICAL EXAM AT DISCHARGE General Appearance: positive No acute distress, Alert and Other (Absolutely vanessa pleasant elderly female who is 5 feet 2 inches tall, and 59.5 kg. There is frail and cachectic) Eyes Bilateral: positive PERRL and EOMI ENT: positive No signs of dehydration Neck: positive No JVD; negative Stiff neck Respiratory: positive No respiratory distress and Breath sounds nml Cardiovascular: positive Irregularly irregular and Systolic murmur Abdomen: positive Non-tender, No organomegaly and Nml bowel sounds Skin: positive Embolic lesions (A large loss of skin on the right breast. The lower inner quadrant, lower outer quadrant and going above the nipple line. An entire loss of skin with flaking at the outer edges. The nipple has been eroded away. There are no masses. Serosanguineous drainage from uncovered tissue leaks onto trevizo) Extremities: positive Full ROM and No pedal edema Neurologic/Psychiatric: positive Oriented x3, CN's nml (2-12) and Motor nml LABS 04/14/24 05:11 04/14/24 05:11 TIME SPENT Time Spent in Discharge (Minutes): 50 Discharge Plan Discharge Patient Disposition: Home Health Service Condition: Stable Medically Cleared Date:: 04/14/24 Prescriptions: New dabigatran etexilate [Pradaxa] 75 mg capsule 75 mg PO BID Qty: 60 2RF Continued ferrous sulfate [Feosol] 325 mg (65 mg iron) tablet 325 mg PO DAILY metoprolol succinate 50 mg tablet extended release 24 hr 50 mg PO DAILY omeprazole 20 mg capsule,delayed release(DR/EC) 20 mg PO DAILY acetaminophen 325 mg capsule 325 mg PO Q4H PRN (Reason: fever or pain) Discontinued warfarin [Jantoven] 2 mg tablet 2 mg PO DAILY Diet: Regular Interventions: Belongings Inventory Last Done: 04/14/24 16:20 Discharge Last Done: 04/14/24 16:21 Discharge Checklist - Nursing Last Done: 04/14/24 16:21 Health Concerns: You presented to the hospital with a history of a right breast erosion for the last 12 years consistent with cancer, iron deficiency anemia, on Coumadin because of atrial fibrillation and an aortic valve replacement, and intermittent episodes of abdominal discomfort and diarrhea. With this most recent episode you had bright red blood per rectum with wiping. You came to the emergency room worried about intestinal bleeding and we found you had irritations of the skin tags of old hemorrhoids. On top of that you had a prolonged bleeding time with your Coumadin. NOrmal INR is 2 to 3 and you were close to 5. That means you will bleed very easily from any cut or irritation. That is why you have bright red blood per rectum. Your cardiology office recommended that we stop the Coumadin and changed to a new drug. Very chronic anemia. That is not new. Because you dipped below 8 g of hemoglobin (normal is 12) we gave you 1 unit of blood. We also spent quite a bit of time discussing dressing changes for your right breast. We think that you may have Paget's disease of the breast. Care Plan Goals: You do not want a lot of procedures done to you. You want to be able to discuss anything that we could potentially do to you and have the ability to say no or yes. Plan of Treatment: 1. Please see your primary care provider in the next 2 to 3 weeks to update them on what you are doing 2. Continue your Coumadin until you are able to molded goods spot picker your new medicine Pradaxa for blood thinning. Stop the Coumadin once you molded goods spot picker the Pradaxa. 3. Because of the wound on your breast that we think is Paget's, I am asking home health nurse to see you for wound care, and a home health aide to help you with bathing. Because I think it is Paget's, you are not a candidate for Arimidex because that would be regular breast cancer. 4. Once you can access the medical ambulatory clinic for wound care, you can stop seeing home health and go to the wound clinic. 5. I am also referring you to palliative patient care provider, Joellen Zhao, to see you. This will take the place of the palliative care person you were seen at [facility]. Print Language: Croatian Patient Instructions: Bleeding Gastrointestinal, Anemia Follow-up Care: PINKY HALE [Primary Care Provider] -
== END 2024-04-14 17:08 | disposition home health service (06) ==
LOC: MS2 10:43 → ED 10:43 → MS2 16:11
PROVIDERS: ADMIT Specialist; ATTEND Specialist
DX: Z79.01 Long term (current) use of anticoagulants; E46 Unspecified protein-calorie malnutrition; Z95.2 Presence of prosthetic heart valve; R19.7 Diarrhea, unspecified; Z86.73 Personal history of transient ischemic attack (TIA), and cerebral infarction without residual deficits; R63.0 Anorexia; I48.20 Chronic atrial fibrillation, unspecified; Z95.1 Presence of aortocoronary bypass graft; C50.911 Malignant neoplasm of unspecified site of right female breast; K62.5 Hemorrhage of anus and rectum; I25.10 Atherosclerotic heart disease of native coronary artery without angina pectoris; D50.9 Iron deficiency anemia, unspecified; K59.00 Constipation, unspecified; Z66 Do not resuscitate; K21.9 Gastro-esophageal reflux disease without esophagitis; R79.1 Abnormal coagulation profile; K64.4 Residual hemorrhoidal skin tags; Z68.23 Body mass index [BMI] 23.0-23.9, adult; Z87.891 Personal history of nicotine dependence